=== PATIENT | male | born 1970 | race Hispanic/Latino ===

== ENCOUNTER 2018-08-27 20:12 | Emergency (ER) | payer OTHER ==
[2018-08-27 20:17] VITALS: BMI 33.1
[2018-08-27 20:19] VITALS: RESP 16; TEMP 98.5
--- NOTE | 2018-08-27 20:42 | ED PDOC ---
HPI: General Adult Time Seen by Provider: 08/27/18 20:39 Chief Complaint (Nursing): Chest Pain Chief Complaint (Provider): chest pain History Per: Patient (48 y/o male h/o HTN/DM/HLD/smoking here with intermittent chest discomfort left sided since yesterday 5pm. No family h/o CT. Patient denies any sob/cough/fevers/chills. Notes discomfort lasts 3 minutes at a time. Has scheduled stress test September 03 with cardiology "b/c he wanted to check things out." Notes a lot of flights last one to [place] recently. Notes moderate stress with work. ) Past Medical History Reviewed: Historical Data, Nursing Documentation, Vital Signs Vital Signs: Last Vital Signs Temp 98.5 F 08/27/18 20:19 Pulse 84 08/27/18 20:19 Resp 16 08/27/18 20:19 BP 155/104 H 08/27/18 20:19 Pulse Ox 97 08/27/18 20:19 Primary Care Provider: Non [facility] Provider, - Medical History PMH: Diabetes, HTN, Hyperlipidemia - Family History Family History: States: No Known Family Hx - Social History Current smoker - smoking cessation education provided: Yes - Allergies Allergies/Adverse Reactions: Allergies Allergy/AdvReac Type Severity Reaction Status Date / Time No Known Allergies Allergy Verified 08/27/18 20:16 Review of Systems ROS Statement: Except As Marked, All Systems Reviewed And Found Negative Cardiovascular: Positive for: Chest Pain Physical Exam - Reviewed Nursing Documentation Reviewed: Yes Vital Signs Reviewed: Yes - Physical Exam Appears: Positive for: Well, Non-toxic, No Acute Distress Head Exam: Positive for: ATRAUMATIC, NORMAL INSPECTION, NORMOCEPHALIC Skin: Positive for: Normal Color, Warm, DRY Eye Exam: Positive for: EOMI, Normal appearance, PERRL ENT: Positive for: Normal ENT Inspection Neck: Positive for: Normal, Painless ROM Cardiovascular/Chest: Positive for: Regular Rate, Rhythm Respiratory: Positive for: CNT, Normal Breath Sounds Gastrointestinal/Abdominal: Positive for: Normal Exam, Soft Back: Positive for: Normal Inspection Extremity: Positive for: Normal ROM Neurological/Psych: Positive for: Awake, Alert, Normal Tone - Laboratory Results Result Diagrams: 08/27/18 21:05 08/27/18 21:05 - ECG ECG Rhythm: Positive for: Sinus Rhythm (NSR 81BPM; T WAVE INV LEAD iii, NO ECTOPY NO ACUTE CHANGES.) O2 Sat by Pulse Oximetry: 97 Disposition - Clinical Impression Clinical Impression: Chest pain - Patient ED Disposition Is Patient to be Admitted: No - Disposition Disposition: Routine/Home Disposition Time: 00:05 Condition: FAIR Additional Instructions: FOLLOW UP WITH YOUR PMD TOMORROW. FOLLOW UP WITH CARDIOLOGY EARLIER THAN 09/03/2018 IF POSSIBLE. Instructions: Chest Pain (DC)
[2018-08-27 21:12] LABS: BASO # 0.1 K/uL (0.0-0.2); BASO % 0.6 % (0.0-2.0); EOS # 0.1 K/uL (0.0-0.7); EOS % 1.6 % (0.0-4.0); HEMOGLOBIN 15.5 g/dL (12.0-18.0); LYMPH # 3.8 K/uL (1.0-4.3); LYMPH % 43.5 % (20.0-40.0); MEAN CELL VOLUME 86.6 fl (80.0-94.0); MEAN CORPUSCULAR HEMOGLOBIN 29.3 pg (27.0-31.0); MEAN CORPUSCULAR HGB CONC 33.8 g/dL (33.0-37.0); MEAN PLATELET VOLUME 9.8 fl (7.2-11.7); MONO # 0.5 K/uL (0.0-0.8); MONO % 5.9 % (0.0-10.0); NEUT # 4.2 K/uL (1.8-7.0); NEUT % 48.4 % (50.0-75.0); NRBC % 0.1 % (0.0-0.0); RBC 5.3 Mil/uL (4.40-5.90); RED CELL DISTRIBUTION WIDTH 13.6 % (11.5-14.5); WHITE BLOOD COUNT 8.7 K/uL (4.8-10.8)
[2018-08-27 21:30] LABS: ALB/GLOB RATIO 1.7 (1.0-2.1); ALBUMIN 4.8 g/dL (3.5-5.0); ALT/SGPT 43 U/L (21-72); AST/SGOT 30 U/L (17-59); BLOOD UREA NITROGEN 19 mg/dl (9-20); GFR NON-AFRICAN AMERICAN > 60
[2018-08-27 21:43] LABS: INR 1.1; PROTHROMBIN TIME 12.6 Seconds (9.8-13.1)
[2018-08-27 21:46] LABS: PARTIAL THROMBOPLASTIN TIME 48.8 Seconds (25.6-37.1)
[2018-08-27 21:54] LABS: D DIMER < 200 ng/mlDDU (0-230)
[2018-08-28 00:17] VITALS: BP 153/85; PULSE 88; O2SAT 96
--- NOTE | 2018-08-28 08:15 | RAD ---
Date of service: 08/27/2018 HISTORY: cp COMPARISON: 01/15/2013 TECHNIQUE: 1 view obtained. FINDINGS: LUNGS: No active pulmonary disease. Current study is apical lordotic PLEURA: No significant pleural effusion identified, no pneumothorax apparent. CARDIOVASCULAR: No aortic atherosclerotic calcification present. Normal cardiac size. No pulmonary vascular congestion. OSSEOUS STRUCTURES: No significant abnormalities. VISUALIZED UPPER ABDOMEN: Normal. OTHER FINDINGS: None. IMPRESSION: Differences in projection no suspect interval pathology in the chest suggested. No acute cardiopulmonary pathology noted.
--- NOTE | 2018-08-28 10:33 | CARD ---
APPROVED REPORT Date of service: 08/27/2018 EKG Measurement Heart [id number] <Conclusion> Normal sinus rhythm Normal ECG
== END 2018-08-28 00:17 | disposition home or self-care (01) ==
LOC: H.ER 20:12
DX: R07.9 Chest pain, unspecified (principal); E11.9 Type 2 diabetes mellitus without complications; E78.5 Hyperlipidemia, unspecified; F17.200 Nicotine dependence, unspecified, uncomplicated; I10 Essential (primary) hypertension